=== PATIENT | female | born 1995 | race Caucasian/White ===

== ENCOUNTER 2018-06-15 20:59 | Inpatient (IN) | payer OTHER ==
[~2018-06-15] VITALS: Ht 162.6 cm; Wt 54.4 kg
[2018-06-15 21:03] VITALS: BP 124/90
--- NOTE | 2018-06-15 21:06 | NUR ---
TO LOBBY A/W BED, BARB BORGES NOTED
--- NOTE | 2018-06-15 21:16 | NUR ---
PT TAKEN TO BED 8
--- NOTE | 2018-06-15 21:20 | NUR ---
ASSUMED CARE OF PT AT THIS TIME. C/O DIFFUSE ABDOMINAL PAIN W/ INTERMITTENT N/V X 12 HOURS. AAOX4 WITH EVEN AND STEADY GAIT; PATIENT STATES PAIN OF 10/10; VSS; PATIENT POSITIONED FOR COMFORT; HOB ELEVATED; BEDRAILS UP X2; BED DOWN. ER MD MADE AWARE OF PT STATUS. WILL CONTINUE TO MONITOR.
--- NOTE | 2018-06-15 21:42 | NUR ---
Dr. Adrian evaluating patient at bedside.
[2018-06-15] MEDS ORDERED: NACL 0.9% 1,000 ML IV ONE ×2 (21:51→23:00)
[2018-06-15] MEDS ORDERED: ONDANSETRON 4 MG/2 ML VIAL IVP ONE (21:55)
--- NOTE | 2018-06-15 21:57 | NUR ---
Female [employer] Associate accompanied female patient for In/Out Catherization for Urine.
[2018-06-15 22:36] LABS: HEMATOCRIT 39.7 % (36-48); HEMOGLOBIN 13.4 g/dL (12.0-16.0); MEAN CORPUSCULAR HEMOGLOBIN 31 pg (27-31); MEAN CORPUSCULAR HGB CONC 34 g/dL (33-37); MEAN CORPUSCULAR VOLUME 90.8 fL (80-94); PLATELET COUNT (AUTO) 324 K/uL (140-450); RED BLOOD CELL COUNT(AUTO) 4.38 MIL/uL (4.20-5.40); RED CELL DISTRIBUTION WIDTH 12.9 % (11.6-13.7); WHITE BLOOD COUNT (AUTO) 14.9 K/uL (4.8-10.8)
[2018-06-15 22:47] LABS: ALBUMIN 4.6 g/dL (3.4-5.0); CARBON DIOXIDE 25.7 mmol/L (21-32); CREATININE 0.7 mg/dL (0.6-1.3); POTASSIUM 4.7 mmol/L (3.5-5.1); TOTAL BILIRUBIN 1.2 mg/dL (0.0-1.0)
[2018-06-15 22:54] LABS: LYMPHOCYTES % (MANUAL) 4 % (20-46); MONOCYTES % (MANUAL) 1 % (5-12)
[2018-06-15] MEDS ORDERED: KETOROLAC 30 MG/ML VIAL IVP ONE (23:00)
--- NOTE | 2018-06-15 23:28 | NUR ---
PT TAKEN TO CT
--- NOTE | 2018-06-15 23:55 | NUR ---
PT RETURNS FROM CT W/OUT INCIDENT.
[2018-06-15 23:56] LABS: APPEARANCE,URINE CLEAR (CLEAR); BILIRUBIN,URINE 1+ (NEGATIVE); BLOOD, URINE NEGATIVE (NEGATIVE); COLOR,URINE YELLOW (YELLOW); LEUKOCYTE ESTERASE ,URINE NEGATIVE (NEGATIVE); NITRITE, URINE NEGATIVE (NEGATIVE); UGLUCOSE NEGATIVE (NEGATIVE)
[2018-06-15 23:58] LABS: RBC,URINE 0-5 (RARE) /HPF (0-5); URINE AMORPHOUS URATE 2+ /HPF (None Seen); WBC,URINE 0-5 (RARE) /HPF (0-5)
[2018-06-16] MEDS ORDERED: metroNIDAZOLE 500 MG/NS PREMIX 100 ML IV ONE (00:20)
[2018-06-16] MEDS ORDERED: PIPERACILLIN/TAZOBACTAM 3.375 GM in DEXTROSE 5% 50 ML IV ONE (00:20)
[2018-06-16] MEDS ORDERED: ACETAMINOPHEN 325 MG TAB PO PRN (00:40)
[2018-06-16] MEDS ORDERED: HYDROmorphone 1 MG/ML AMP IVP PRN (00:40)
[2018-06-16] MEDS ORDERED: ONDANSETRON 4 MG/2 ML VIAL IVP PRN (00:40)
[2018-06-16] MEDS ORDERED: PIPERACILLIN/TAZOBACTAM 3.375 GM VIAL IV ONE (00:45)
--- NOTE | 2018-06-16 00:55 | NUR ---
Patient will be admitted to [facility]. Admitted to MED/SURG. Will go to room 111A. Belongings list completed. Report to AVIVA MIRANDA.
[2018-06-16 01:00] VITALS: BP 109/69
--- NOTE | 2018-06-16 01:00 | NUR ---
PT ARRIVED AT UNIT FROM ER VIA GURNEY, PT AMBULATED TO BED, TOLERATED WELL, RECEIVED REPORT FROM ER NURSE CHARBEL CHICAS, PT STABLE, NO DISTRESS NOTED, IV TO L AC 18G PATENT, INTACT, SL, PT ON ROOM AIR, NO SOB NOTED, MRSA SWAB TAKEN, V/S TAKEN WNL, INITIAL ASSESSMENT DONE, ALL SAFETY PRECAUTION MET, ORIENT PT TO ROOM , BED, TV, PHONE, PT STATED UNDERSTANDING, FATHER AT BEDSIDE, CALL LIGHT WITHIN REACH, WILL CONTINUE TO MONITOR.
[2018-06-16] MEDS: NACL 0.9% 1,000 ML IV SCH ×2 (01:31→12:18)
[2018-06-16] MEDS ORDERED: PIPERACILLIN/TAZOBACTAM 2.25 GM VIAL IV ONE (04:26)
[2018-06-16] MEDS ORDERED: PIPERACILLIN/TAZOBACTAM 2.25 GM in DEXTROSE 5% 50 ML IV SCH (05:00)
--- NOTE | 2018-06-16 07:30 | NUR ---
RECEIVED PT REPORT FROM LANDSCAPE ARCHITECTURE TEACHER NURSE RN. PT IS AAOX4, NO S/S DISTRESS NOTED ON RM AIR, IV TO L AC 18G PATENT, INTACT, RUNNING NS AT 100ML/HR. INITIAL ASSESSMENT DONE, C/O ABD 09/03, TOLERABLE AT THIS TIME, REFUSED ANY PAIN MEDS. ALL SAFETY PRECAUTION MET, ORIENTED PT TO ROOM, PT VERBALIZED UNDERSTANDING, CALL LIGHT WITHIN REACH, WILL CONTINUE TO MONITOR.
--- NOTE | 2018-06-16 07:38 | NUR ---
RECEIVED PATIENT ON ROOM AIR, O2 SAT 98%. BREATH SOUNDS CLEAR. PATIENT DENIES SOB. NO HHN GIVEN, TX NOT INDICATED AT THIS TIME. NO RESPIRATORY DISTRESS NOTED AT THIS TIME. WILL CONTINUE TO MONITOR.
[2018-06-16 08:00] VITALS: BP 110/76
--- NOTE | 2018-06-16 08:23 | NUR ---
PATIENT HAS BEEN SCREENED AND CATEGORIZED LOW NUTRITION RISK. PATIENT WILL BE SEEN WITHIN 7 DAYS OF ADMISSION. 06/22/[address]
--- NOTE | 2018-06-16 10:23 | NUR ---
CM NOTE PER ANUPAMA OF [facility] (PCP) PH# [phone], PATIENT IS SCHEDULED FOR OUTPATIENT FOLLOW UP ON JUNE 22, 2018 1:30PM AT THE CLINIC [address] [place] [id number]. I GAVE PATIENT A COPY OF HER OUTPATIENT FOLLOW UP SCHEDULE.
--- NOTE | 2018-06-16 12:05 | NUR ---
PT STILL HAVE PAIN 3/10 RIGHT LOWER ABD, NON RADIATING, DENIES NAUSEA. REFUSED ANY PAIN MEDS AT THIS TIME.
[2018-06-16] MEDS: PIPER/TAZO 3.375GM/D5W PREMIX 50 ML IV SCH ×2 (12:17→17:27)
--- NOTE | 2018-06-16 12:59 | NUR ---
06/16/18 RD INITIAL ASSESSMENT COMPLETED PLEASE REFER TO NUTRITION ASSESSMENT UNDER CARE ACTIVITY FOR ESTIMATED NUTRITIONAL NEEDS. 1. CONTINUE REGULAR DIET TOLERATED 2. RD TO FOLLOW UP ON ADEQUATE PO INTAKE AND HEALTHY FATS DIET EDUCATION 3. RD TO FOLLOW-UP 3-5 DAYS, MODERATE RISK BRYCE JOHNSON, RD
[2018-06-16] MEDS ORDERED: PIPER/TAZO 2.25GM/D5W PREMIX 50 ML IV SCH (13:00)
[2018-06-16 14:35] LABS: BASOPHILS # (AUTO) 0.1 K/uL (0.00-0.22); BASOPHILS % (AUTO) 0.7 % (0.0-2.0); EOSINOPHILS % (AUTO) 0.1 % (0.0-4.0); HEMATOCRIT 35.2 % (36-48); HEMOGLOBIN 11.8 g/dL (12.0-16.0); LYMPHOCYTES # (AUTO) 1.6 K/uL (2.5-16.5); LYMPHOCYTES % (AUTO) 13.2 % (20.5-51.1); MEAN CORPUSCULAR HEMOGLOBIN 31 pg (27-31); MEAN CORPUSCULAR HGB CONC 34 g/dL (33-37); MEAN CORPUSCULAR VOLUME 91.3 fL (80-94); MONOCYTES % (AUTO) 7.9 % (1.7-9.3); NEUTROPHILS # (AUTO) 9.5 K/uL (1.8-7.7); NEUTROPHILS % (AUTO) 78.1 % (42.2-75.2); PLATELET COUNT (AUTO) 270 K/uL (140-450); RED BLOOD CELL COUNT(AUTO) 3.85 MIL/uL (4.20-5.40); WHITE BLOOD COUNT (AUTO) 12.2 K/uL (4.8-10.8)
[2018-06-16 16:00] VITALS: BP 109/65
--- NOTE | 2018-06-16 16:00 | NUR ---
SPOKE WITH DR SALAZAR OVER THE PHONE. NOTIFIED RESULTS OF CBC, US ABD, PELVIS AND APPENDIX. DR SALAZAR ORDERED CLEAR LIQ AND REPEAT CBC, BMP TOMORROW MORNING AND MONITOR PT.
--- NOTE | 2018-06-16 18:10 | NUR ---
PT TOLERATED CLEAR LIQ DIET WELL, NO VOMITING, DENIES NAUSEA.
--- NOTE | 2018-06-16 19:35 | NUR ---
REPORT GIVEN TO FEEDER TENDER RN, JUAN PABLO AT BEDSIDE. PT IN STABLE CONDITION.
--- NOTE | 2018-06-16 20:20 | NUR ---
SEEN PT AWAKE, ALERT AND ORIENTED. INITIAL ASSESSMENT DONE. VITAL SIGNS CHECKED. PT HAS FCPO=016. WILL GIVE TYLENOL PO PRN. PT DENIES ANY PAIN AT THIS TIME. PLAN OF CARE DISCUSSED. PT VERBALIZED UNDERSTANDING. PT ASKED WHEN WAS HER LAST BM, SHE SAID " MAYBE 2 DAYS AGO." ASKED IF ITS HER NORMAL, PT SAID "YES". SAFETY REINFORCED.
[2018-06-16 20:25] VITALS: BP 93/59
--- NOTE | 2018-06-16 21:40 | NUR ---
SEEN PT AWAKE. TEMP RECHECKED:101. TOP SHEET REMOVED SENIOR CARE. COOLING MEASURE APPLIED. PT DENIES FEELING COLD NOR WARM. PT DENIES ANY PAIN. WILL RECHECK PT.
--- NOTE | 2018-06-17 00:02 | NUR ---
SEEN PT AWAKE WATCHING TV. TEMP RECHECKED:98.8 COLD COMPRESS REMOVED. PT DENIES ANY PAIN OR DISCOMFORT. CALL LIGHT W/IN REACH.
[2018-06-17] MEDS: PIPER/TAZO 3.375GM/D5W PREMIX 50 ML IV SCH ×3 (00:03→11:46)
[2018-06-17] MEDS: NACL 0.9% 1,000 ML IV SCH ×2 (00:07→06:37)
[2018-06-17 04:35] VITALS: BP 96/58
--- NOTE | 2018-06-17 04:40 | NUR ---
SEEN PT ASLEP BUT EASILY AROUSABLE. VITAL SIGNS CHECKED. PT DENIES ANY PAIN OR DISCOMFORT. WILL CONTINUE TO MONITOR.
--- NOTE | 2018-06-17 07:01 | NUR ---
PT ASLEEP. WILL ENDORSE TO DAYSHIFT NURSE.
--- NOTE | 2018-06-17 07:10 | NUR ---
RECEIVED PT REPORT FROM MAPPING TECHNICIAN NURSE RN. PT IS AAOX4, NO S/S DISTRESS NOTED ON RM AIR, IV TO L AC 18G PATENT, INTACT, RUNNING NS AT 100ML/HR. INITIAL ASSESSMENT DONE, DENIES ANY PAIN. ALL SAFETY PRECAUTION MET, PLAN OF CARE DISCUSSED, PT VERBALIZED UNDERSTANDING, CALL LIGHT WITHIN REACH, WILL CONTINUE TO MONITOR.
[2018-06-17 07:52] LABS: BASOPHILS # (AUTO) 0.1 K/uL (0.00-0.22); BASOPHILS % (AUTO) 0.9 % (0.0-2.0); EOSINOPHILS % (AUTO) 0.3 % (0.0-4.0); HEMATOCRIT 32.8 % (36-48); HEMOGLOBIN 11.2 g/dL (12.0-16.0); LYMPHOCYTES # (AUTO) 1.4 K/uL (2.5-16.5); LYMPHOCYTES % (AUTO) 16.3 % (20.5-51.1); MEAN CORPUSCULAR HEMOGLOBIN 31 pg (27-31); MEAN CORPUSCULAR HGB CONC 34 g/dL (33-37); MEAN CORPUSCULAR VOLUME 91.8 fL (80-94); MONOCYTES # (AUTO) 0.7 K/uL (0.8-1.0); MONOCYTES % (AUTO) 8.3 % (1.7-9.3); NEUTROPHILS # (AUTO) 6.5 K/uL (1.8-7.7); NEUTROPHILS % (AUTO) 74.2 % (42.2-75.2); PLATELET COUNT (AUTO) 226 K/uL (140-450); RED BLOOD CELL COUNT(AUTO) 3.58 MIL/uL (4.20-5.40); RED CELL DISTRIBUTION WIDTH 12.8 % (11.6-13.7); WHITE BLOOD COUNT (AUTO) 8.7 K/uL (4.8-10.8)
[2018-06-17 08:09] LABS: ANION GAP 12.9 (8-16); CARBON DIOXIDE 24.5 mmol/L (21-32); CREATININE 0.5 mg/dL (0.6-1.3); POTASSIUM 3.4 mmol/L (3.5-5.1)
--- NOTE | 2018-06-17 08:30 | NUR ---
PT HAD CLEAR LIQUID DIET, TOLERATED WELL. DENIES ANY PAIN AT THIS TIME.
--- NOTE | 2018-06-17 13:30 | NUR ---
PT ATE 25% OF REGULAR MEAL. NO VOMITING, DENIES NAUSEA AND PAIN.
--- NOTE | 2018-06-17 13:40 | NUR ---
PER CHARGE NURSE OBDULIA, THAT DR SMITH ALREADY TALKED TO DR SALAZAR, OK TO DC TODAY, AND F/U WITH HIM.
[2018-06-17] MEDS ORDERED: CIPR500T4 PO (13:56)
[2018-06-17] MEDS ORDERED: METR250T2 PO (13:57)
--- NOTE | 2018-06-17 14:10 | NUR ---
SPOKE WITH DR SMITH OVER THE PHONE, OK TO DC, FOLLOW UP WITH DR SALAZAR AND HIM WITHIN 1-2 WKS OF DC. CLARIFIED RX WITH DR SMITH, ROBERTO AND MIRYAM.
--- NOTE | 2018-06-17 14:30 | NUR ---
PT DISCHARGE TO HOME. PT'S FATHER IS HERE WITH PT. IV DC'D, TIP INTACT, PRESSURE APPLIED. MADE PT AWARE THAT SHE NEEDS TO F/U WITH DR SMITH OR PCP, ALSO DR SALAZAR SURGEON WITHIN 1-2 WKS. PHONE NUMBERS FOR MAKING APPT PROVIDED. PT VERBALIZED UNDERSTANDING. DISCHARGE INSTRUCTION AND MEDS TEACHING PROVIDED. RX GIVEN. PT VERBALIZED UNDERSTANDING. WALKED PT TO LOBBY. PT HAS ALL HER BELONGING.
== END 2018-06-17 14:30 | disposition home or self-care (01) | DRG 254 ==
LOC: MED 20:59 → MTU 06-16 00:41
PROVIDERS: ADMIT Hospitalist; ATTEND Hospitalist
DX: K35.80 Unspecified acute appendicitis (principal); E66.9 Obesity, unspecified; E80.6 Other disorders of bilirubin metabolism; Z68.20 Body mass index [BMI] 20.0-20.9, adult
CPT/HCPCS: 36415; 76700; 76705; 76856; 80048; 80053; 81001; 83690; 85025; 87081; 96361; 96365; 96368; 96375; 99285; J1885; J2405; J2543; J3490; J7030; J7060; Q0092; Q9967

== ENCOUNTER 2018-08-15 00:19 | Emergency (ER) | payer OTHER ==
[~2018-08-15] VITALS: Ht 162.6 cm; Wt 50.5 kg
[~2018-08-15 00:19] MED LIST: CIPR500T4 PO; METR250T2 PO
[2018-08-15 00:32] VITALS: BP 146/89
--- NOTE | 2018-08-15 00:37 | NUR ---
PT TAKEN TO BED 11
--- NOTE | 2018-08-15 00:46 | NUR ---
PATIENT PRESENTS TO ED WITH C/O OF RLQ ABDOMINAL PAIN X1 DAY . PT STATES PAIN IS 9/10 AND RLQ IS TENDER UPON PALPATATION. REPORTS N/V DENIES DIARRHEA, X4 ACTIVE BOWEL SOUNDS; SKIN IS PINK/WARM/DRY; AAOX4 WITH EVEN AND STEADY GAIT; LUNGS CLEAR BL; HR EVEN AND REGULAR; PT DENIES ANY FEVER, CP, SOB, OR COUGH AT THIS TIME;PATIENT AWAITING MD EVALUATION, WILL CONTINUE TO MONITOR, ER MD MADE AWARE OF PT STATUS.
[2018-08-15] MEDS ORDERED: NACL 0.9% 1,000 ML IV ONE (00:55)
[2018-08-15] MEDS ORDERED: KETOROLAC 30 MG/ML VIAL IVP ONE (00:55)
[2018-08-15] MEDS ORDERED: ONDANSETRON 4 MG/2 ML VIAL IVP ONE (00:55)
[2018-08-15 01:34] LABS: BASOPHILS # (AUTO) 0.1 K/uL (0.00-0.22); BASOPHILS % (AUTO) 0.4 % (0.0-2.0); HEMATOCRIT 40.5 % (36-48); HEMOGLOBIN 13.5 g/dL (12.0-16.0); LYMPHOCYTES # (AUTO) 1.6 K/uL (2.5-16.5); LYMPHOCYTES % (AUTO) 10.7 % (20.5-51.1); MEAN CORPUSCULAR HEMOGLOBIN 30 pg (27-31); MEAN CORPUSCULAR HGB CONC 33 g/dL (33-37); MONOCYTES # (AUTO) 0.9 K/uL (0.8-1.0); NEUTROPHILS # (AUTO) 12.1 K/uL (1.8-7.7); NEUTROPHILS % (AUTO) 82.9 % (42.2-75.2); PLATELET COUNT (AUTO) 298 K/uL (140-450); RED BLOOD CELL COUNT(AUTO) 4.45 MIL/uL (4.20-5.40); RED CELL DISTRIBUTION WIDTH 13.5 % (11.6-13.7); WHITE BLOOD COUNT (AUTO) 14.6 K/uL (4.8-10.8)
[2018-08-15 01:41] LABS: ANION GAP 10.3 (8-16); CARBON DIOXIDE 31.1 mmol/L (21-32); CREATININE 0.8 mg/dL (0.6-1.3); POTASSIUM 4.4 mmol/L (3.5-5.1)
[2018-08-15 01:42] LABS: ALBUMIN 4.6 g/dL (3.4-5.0); TOTAL BILIRUBIN 1.6 mg/dL (0.0-1.0)
--- NOTE | 2018-08-15 02:02 | NUR ---
PT UNABLE TO VOID AT THIS TIME.
--- NOTE | 2018-08-15 02:22 | NUR ---
# 14 FR Urinary catheter inserted utilizing sterile technique. Immediate return of CL YELLOW 30 ml urine noted. Urine sample collected and sent to lab. Pt tolerated procedure WELL.
[2018-08-15 04:09] VITALS: BP 140/78
--- NOTE | 2018-08-15 04:09 | NUR ---
Patient discharged with v/s stable. Written and verbal after care instructions given and explained. Patient alert, oriented and verbalized understanding of instructions. Ambulatory with steady gait. All questions addressed prior to discharge. ID band removed. Patient advised to follow up with PMD. Rx of MOTRIN, ZOFRAN given. Patient educated on indication of medication including possible reaction and side effects. Opportunity to ask questions provided and answered.
== END 2018-08-15 04:09 | disposition home or self-care (01) ==
LOC: MED 00:19
DX: R10.31 Right lower quadrant pain (principal); R11.2 Nausea with vomiting, unspecified; R68.83 Chills (without fever); R63.0 Anorexia; Z79.2 Long term (current) use of antibiotics; Z79.899 Other long term (current) drug therapy
CPT/HCPCS: 36415; 74176; 80053; 81002; 81025; 85025; 87040; 96361; 96374; 96375; 99284; C1758; J1885; J2405; J7030

== ENCOUNTER 2018-09-25 04:40 | Emergency (ER) | payer OTHER ==
[~2018-09-25] VITALS: Ht 165.1 cm; Wt 49.9 kg
[2018-09-25 04:45] VITALS: BP 132/78
--- NOTE | 2018-09-25 04:45 | NUR ---
TO BED #06 AMBULATORY, REPORT GIVEN TO LORRAINE CHICAS
--- NOTE | 2018-09-25 04:50 | NUR ---
PT BIB MOTHER C/O VOMITING. MOTHER STATES PT HAS A NEW RX OF SERTRALINE AND AFTER TAKING THE MEDICATION STARTED VOMTING X2 DAYS. PT STATES 0/10 PAIN AT THIS TIME. --FLAT AFFECT; DELAYED SPEECH. AAOX4. PERRLA. SKIN WARM, DRY AND INTACT. PT IN BED; BED IN LOWER LOCKED POSITION. ER MD AWARE. WILL CONTINUE TO MONITOR. PMH: DEPRESSION RX: SERTRALINE, ZOFRAN
[2018-09-25] MEDS ORDERED: ONDANSETRON 4 MG ODT PO ONE (05:00)
--- NOTE | 2018-09-25 05:26 | NUR ---
Patient discharged with v/s stable. Patient states 0/10 pain at this time. Written and verbal after care instructions given and explained. Patient alert, oriented and verbalized understanding of instructions. Ambulatory with mother. All questions addressed prior to discharge. ID band removed. Patient advised to follow up with PMD. Rx of Zofran given. Patient educated on indication of medication including possible reaction and side effects. Opportunity to ask questions provided and answered. Addendum: 09/25/18 at 0536 by [email or web address] Patient discharged with v/s stable. Patient states 0/10 pain at this time, patient states she feels better. Written and verbal after care instructions given and explained. Patient alert, oriented and verbalized understanding of instructions. Ambulatory with mother. All questions addressed prior to discharge. ID band removed. Patient advised to follow up with PMD. Rx of Zofran given. Patient educated on indication of medication including possible reaction and side effects. Opportunity to ask questions provided and answered.
[2018-09-25 05:33] VITALS: BP 139/80
== END 2018-09-25 05:26 | disposition home or self-care (01) ==
LOC: MED 04:40
DX: R11.2 Nausea with vomiting, unspecified (principal); Z79.899 Other long term (current) drug therapy
CPT/HCPCS: 99283; Q0162